=== PATIENT | female | born 1955 | race Caucasian/White ===

== ENCOUNTER 2017-03-18 07:55 | Emergency (ER) | payer OTHER ==
[2017-03-18] MEDS: IPRATROPIUM (NEB) 0.5 MG/2.5 ML AMP HHN (08:30)
[2017-03-18] MEDS: ALBUTEROL 0.083% (NEB) 2.5 MG/3 ML AMP HHN (08:31)
[2017-03-18 08:43] LABS: ADD MAN DIFF? NO
[2017-03-18 08:49] LABS: WHITE BLOOD COUNT 13.2 10^3/ul (4.8-10.8)
[2017-03-18 08:49] LABS: BASOPHILS % 0.3 % (0.0-2.0); EOSINOPHILS # 0.1 10^3/ul (0.0-0.5); EOSINOPHILS % 0.5 % (0.0-7.0); HEMATOCRIT 35.2 % (37.0-47.0); HEMOGLOBIN 12.3 g/dl (12.0-16.0); LYMPHOCYTES % 7.6 % (15.0-51.0); MEAN CORPUSCULAR HGB CONC 34.9 g/dl (32.0-37.0); MEAN CORPUSCULAR VOLUME 85.9 fl (82.0-101.0); MONOCYTE # 0.8 10^3/ul (0.3-0.9); MONOCYTES % 5.7 % (0.0-11.0); NEUTROPHIL # 11.3 10^3/ul (1.6-7.5); NEUTROPHILS % 85.4 % (39.0-77.0); PLATELET COUNT 200 10^3/UL (140-415); RED CELL DISTRIBUTION WIDTH 13.2 % (11.5-14.5)
[2017-03-18 09:14] LABS: ANION GAP 17 (8-16); BLOOD UREA NITROGEN 16 mg/dl (7-20); CALCIUM 8.8 mg/dl (8.4-10.2); CARBON DIOXIDE 25 mmol/L (21-31); CHLORIDE 104 mmol/L (97-110); CREATININE 0.81 mg/dl (0.44-1.00); GLUCOSE 122 mg/dl (70-220); SODIUM 142 mmol/L (135-144)
[2017-03-18 09:28] LABS: TROPONIN-I < 0.012 ng/ml (0.00-0.12)
== END 2017-03-18 11:24 | disposition home or self-care (01) ==
LOC: FTE 07:55
DX: J20.9 Acute bronchitis, unspecified (principal); J45.901 Unspecified asthma with (acute) exacerbation
CPT/HCPCS: 36415; 71045; 80048; 84484; 85025; 93005; 94644; 99285-25

== ENCOUNTER 2017-04-10 08:25 | Day surgery (SDC) | payer OTHER ==
[2017-04-10] MEDS ORDERED: LIDOCAINE 4% SOLUTION 50 ML BTL (09:03)
[2017-04-10] MEDS ORDERED: MIDAZOLAM 1 MG/ML 2 ML INJ ×2 (10:10)
[2017-04-10] MEDS ORDERED: FENTAnyl 50 MCG/ML VIAL (10:11)
== END 2017-04-10 10:50 | disposition home or self-care (01) ==
LOC: GIL 08:25
DX: Z12.11 Encounter for screening for malignant neoplasm of colon (principal); D12.4 Benign neoplasm of descending colon; K57.90 Diverticulosis of intestine, part unspecified, without perforation or abscess without bleeding; K64.4 Residual hemorrhoidal skin tags; K64.8 Other hemorrhoids
CPT/HCPCS: 43239; 88305; 88312